=== PATIENT | male | born 1945 | race Two or more races ===

== ENCOUNTER 2020-07-03 11:58 | Emergency (ER) | payer MEDICARE, OTHER ==
[~2020-07-03] VITALS: Ht 170.2 cm; Wt 90.7 kg
[2020-07-03] MEDS ORDERED: SODIUM BICARBONATE 8.4 % INJ 50ML VIAL IV ONE (11:59)
[2020-07-03] MEDS ORDERED: CALCIUM CHLOR(10%) 100MG/ML 10ML SYRINGE IV ONE (11:59)
[2020-07-03] MEDS ORDERED: EPINEPHrine HCL 1 MG/10 ML SYRG IV ONE (11:59)
== END 2020-07-03 12:13 ==
LOC: EDBD 11:58 → ER 11:58
DX: I46.9 Cardiac arrest, cause unspecified (principal); R06.89 Other abnormalities of breathing; E11.9 Type 2 diabetes mellitus without complications
CPT/HCPCS: 31500; 92950; 99285; J0171